=== PATIENT | female | born 1965 | race American Indian/Alaskan Native ===

== ENCOUNTER 2019-04-10 09:32 | Day surgery (SDC) | payer OTHER ==
[2019-04-09 11:11] VITALS: BMI 25.0
[2019-04-10 11:48] VITALS: TEMP 97.9
[2019-04-10 11:52] VITALS: BP 139/55; PULSE 58
--- NOTE | 2019-04-13 17:01 | PATH ---
Surgical Pathology Report Patient Name: MADHURI MILLER [facility]. Rec. #: [id number] /Age/Gender: 1965 (Age: 54) / F Account: [id number] Location: [facility]-ENDOSCOPY Taken: 04/10/2019 Received: 04/10/2019 Reported: 04/13/2019 Physicians: Braydon Medellin M.D. Specimen(s) Received A: ASCENDING COLON, RAISED MUCOSA B: SIGMOID COLON POLYP Clinical History Screening Postoperative diagnosis: Sigmoid colon polyp, hemorrhoids, biopsy of ascending colon mucosa Final Diagnosis A. ASCENDING COLON, RAISED MUCOSA, BIOPSY: COLONIC MUCOSA WITH MILD SUPERFICIAL HYPERPLASTIC FEATURES. B. SIGMOID COLON, POLYP, BIOPSY: HYPERPLASTIC POLYP. Electronically Signed Tessie Peters M.D. Gross Description A. Received in formalin, labeled "ascending colon biopsy" is a lowe, irregular portion of soft tissue measuring 0.4 cm. in greatest dimension. The specimen is submitted in toto in one cassette. B. Received in formalin, labeled "sigmoid colon polyp" is a lowe, irregular portion of soft tissue measuring 0.3 cm. in greatest dimension. The specimen is submitted in toto in one cassette. /04/10/2019 saudi04/10/2019
== END 2019-04-10 11:40 | disposition home or self-care (01) ==
LOC: JASU-ENDO 09:32
PROVIDERS: ATTEND Internal Medicine Gastroenterology
PROC: 0DBN8ZX Excision of Sigmoid Colon, Via Natural or Artificial Opening Endoscopic, Diagnostic (ICD-10-PCS; 2019-04-10)
PROC: 0DBK8ZX Excision of Ascending Colon, Via Natural or Artificial Opening Endoscopic, Diagnostic (ICD-10-PCS; principal; 2019-04-10 12:30)
DX: Z12.11 Encounter for screening for malignant neoplasm of colon (principal); D12.2 Benign neoplasm of ascending colon; D12.5 Benign neoplasm of sigmoid colon; K64.8 Other hemorrhoids
CPT/HCPCS: 81025; 88305-TC